=== PATIENT | female | born 1965 | race Caucasian/White ===

== ENCOUNTER 2022-08-12 09:40 | Emergency (ER) | payer BC, SELFPAY ==
--- NOTE | ~2022-08-12 | XR_ITS ---
AP and oblique views of the left ribs Clinical History: Pain Findings: No rib fracture is seen. Osseous alignment is anatomic. Lungs are clear, without focal cons olidation or pleural effusion. Cardiomediastinal contour is within normal limits. Soft tissues are un remarkable. Impression: No rib fracture is seen. Reviewed, dictated and finalized at [facility]. P[employer]CE [employer]ER Impression: No rib fracture is seen.
--- NOTE | 2022-08-12 09:57 | ED.GENADULT ---
HPI - General Adult General Chief complaint: Back Pain/Injury Stated complaint: Chest and Back Pain Time Seen by Provider: 08/12/22 09:57 Source: patient Mode of arrival: ambulatory Limitations: no limitations History of Present Illness HPI narrative: 56 yo F presents with c/o L sided rib pain for 3 alfie 4 days. States her came home and hugged her and lifted her up and left pop in ribs. has had pain since. is concerned she has rib fracture. Denies SOB. Taking ibuprofen to treat pain. All systems reviewed and negative except as noted above. Related Data Allergies Allergy/AdvReac Type Severity Reaction Status Date / Time No Known Allergies Allergy Verified 08/12/22 09:59 Review of Systems Review of Systems: CONSTITUTIONAL: Denies fever, chills, or sweats. EYES: Denies visual changes, redness, or discharge. ENT: Denies rhinorrhea, congestion, sore throat, or otalgia. CARDIOVASCULAR: Denies chest pain, palpitations, or edema. RESPIRATORY: Denies cough or dyspnea. GASTROINTESTINAL: Denies abdominal pain, nausea, vomiting, or diarrhea. GENITOURINARY: Denies dysuria or hematuria. SKIN: Denies rash or itching. MUSCULOSKELETAL: Denies back pain, joint pain, or myalgia. Reports left-sided rib pain. NEUROLOGIC: Denies headache, numbness, or weakness. PSYCHIATRIC: Denies anxiety or depression. All other systems reviewed are negative, except as documented in HPI. PMFSH Comments At time of signature, agree with nursing past medical, surgical, social and family history. There is no relevant family history pertinent to the presenting complaint. Exam Narrative: GENERAL: This is a well-nourished, well-developed patient, in no apparent distress. HEAD: normocephalic, atraumatic. EYES: PERRL. Sclera clear/white. Vision is grossly intact. EARS: External ears normal NOSE: External nose normal NECK: Neck supple, non-tender without lymphadenopathy, masses or thyromegaly. CARDIOVASCULAR: Regular rate and rhythm without murmurs, gallops, or rubs. RESPIRATORY: Clear to auscultation. Breath sounds equal bilaterally. No wheezes, rales, or rhonchi. MUSCULOSKELETAL: tenderness to L ribs 4th-6th along sternum SKIN: warm, Dry, intact with no suspicious lesions or rash, good texture and turgor. NEURO: awake, alert, and oriented to person, place and time. There were no obvious focal neurologic abnormalities. EXTREMITIES: No joint tenderness, effusion, or edema noted. Course Course Level of Care: Express Care Visit Vital Signs Vital signs: Vital Signs Temperature 36.3 C L 08/12/22 10:04 Pulse Rate 99 08/12/22 10:04 Respiratory Rate 16 08/12/22 10:04 Blood Pressure 169/99 H 08/12/22 10:04 Pulse Oximetry 100 08/12/22 10:04 Oxygen Delivery Room Air 08/12/22 10:04 Temperature 36.3 C L 08/12/22 10:04 Pulse Rate 99 08/12/22 10:04 Respiratory Rate 16 08/12/22 10:04 Blood Pressure 169/99 H 08/12/22 10:04 Pulse Oximetry 100 08/12/22 10:04 Oxygen Delivery Room Air 08/12/22 10:04 Reviewed Medical Decision Making MDM Narrative Medical decision making narrative: Patient is aware of diagnosis, understands and agrees to treatment plan. Anticipatory guidance given. Patient agrees to follow-up as directed and is aware of reasons to seek care at the emergency department. Portions of this record may have been created with voice recognition software discussed x-ray results with pt. recommend follow up with PCP if pain is not improving. Vital Signs Vital Signs: Vital Signs Temperature 36.3 C L 08/12/22 10:04 Pulse Rate 99 08/12/22 10:04 Respiratory Rate 16 08/12/22 10:04 Blood Pressure 169/99 H 08/12/22 10:04 Pulse Oximetry 100 08/12/22 10:04 Oxygen Delivery Room Air 08/12/22 10:04 Temperature 36.3 C L 08/12/22 10:04 Pulse Rate 99 08/12/22 10:04 Respiratory Rate 16 08/12/22 10:04 Blood Pressure 169/99 H 08/12/22 10:04 Pulse Oximetry 100 08/12/22 10:04 Oxygen
[2022-08-12 10:04] VITALS: BP 169/99; PULSE 99; RESP 16; TEMP 36.3; O2SAT 100
== END 2022-08-12 10:45 | disposition home or self-care (01) ==
PROVIDERS: Emergency Provider Nurse Practitioner Family; PCP Internal Medicine
DX: S20.212A Contusion of left front wall of thorax, initial encounter (principal); X58.XXXA Exposure to other specified factors, initial encounter
CPT/HCPCS: 71101; 99213; G0463